=== PATIENT | male | born 1980 | race Caucasian/White ===

== ENCOUNTER 2017-05-14 09:35 | Emergency (ER) | payer OTHER ==
[2017-05-14 09:51] VITALS: BP 146/89
--- NOTE | 2017-05-14 10:06 | EDM.PDOC ---
ED HPI GENERAL MEDICAL PROBLEM - General Chief Complaint: Respiratory Problem Stated Complaint: SOB/VA SENT OVER Time Seen by Provider: 05/14/17 10:06 - History of Present Illness INITIAL COMMENTS - FREE TEXT/NARRATIVE: 37-year-old male presents emergency room with worsening cough and chest tightness. Patient was seen [facility] and referred over here the patient has MS with chronic right-sided weakness and he's had increased shakiness in his hands often he gets this way when he is on the verge of having a EMS for he has vision changes with this as well.. The patient has developed cough with significant chills. This started now 4 days ago. The patient understands that he is breathing okay but it feels more labored than normal. He has a frequent cough that is dry nonproductive. He was achy the day before yesterday significantly so but this seems to have resolved. He has had no gastrointestinal symptoms no other symptoms at this time the patient is mildly neutropenic because of his treatment for his MS. Patient currently is not on steroids but has a stock of this at home in case he has an acute flare. Headache Pain Score (Numeric/FACES): 5 - Related Data Allergies Allergy/AdvReac Type Severity Reaction Status Date / Time interferon beta-1a Allergy Other Verified 05/14/17 09:46 [From Avonex] Home Meds: Home Meds Albuterol [IMW: Ventolin HFA] 2 puff INH Q4H #18 gm 05/14/17 [Rx] Fingolimod [Gilenya] 0.5 mg PO DAILY 05/14/17 [History] Fluticasone Propionate [Children's Flonase Allergy Rlf] 9.9 ml NS BID 05/14/17 [ History] Methylprednisolone [IJD: Methylprednisolone] 4 mg PO Q6H 05/14/17 [History] Zolpidem Tartrate 10 mg PO BEDTIME 05/14/17 [History] Past Medical History Neurological History: Reports: Other (See Below) Other Neuro History: MS Psychiatric History: Reports: Other (See Below) Other Psychiatric History: Insomnia Hematologic History: Reports: Other (See Below) Other Hematologic History: Leukopenia Immunologic History: Reports: Immunosuppression - Past Surgical History GI Surgical History: Reports: Other (See Below) Other GI Surgeries/Procedures: hernia repair x 3 Musculoskeletal Surgical History: Reports: Other (See Below) Other Musculoskeletal Surgeries/Procedures:: knee and elbow surgery Social & Family History - Tobacco Use Smoking Status *Q: Never Smoker - Caffeine Use Caffeine Use: Reports: Tea - Alcohol Use Days Per Week of Alcohol Use: 2 Number of Drinks Per Day: 2 Total Drinks Per Week: 4 - Recreational Drug Use Recreational Drug Use: No ED ROS GENERAL - Review of Systems Review Of Systems: See Below Constitutional: Reports: Chills, Other (His chills have seemed to improve). Denies: No Symptoms HEENT: Reports: No Symptoms Respiratory: Reports: Shortness of Breath, Cough. Denies: Sputum Cardiovascular: Reports: No Symptoms GI/Abdominal: Reports: No Symptoms : Reports: No Symptoms Musculoskeletal: Reports: Muscle Pain (This has improved), Muscle Stiffness Skin: Reports: No Symptoms Neurological: Reports: Other (Intermittent visual changes consistent with his MS his right-sided symptoms have not been worsening.) Psychiatric: Reports: No Symptoms ED EXAM, GENERAL - Physical Exam Exam: See Below Exam Limited By: No Limitations General Appearance: Alert, No Apparent Distress Eye Exam: Bilateral Eye: Normal Inspection Ears: Normal External Exam, Normal Canal, Other (Cerumen up against the tympanic membranes the patient is been using Q-tips on exertion) Nose: Normal Inspection, Normal Mucosa, No Blood Throat/Mouth: Normal Inspection, Normal Lips, Normal Teeth, Normal Gums, Normal Oropharynx, Normal Voice, No Airway Compromise Head: Atraumatic, Normocephalic Neck: Normal Inspection, Supple, Non-Tender, Full Range of Motion Respiratory/Chest: No Respiratory Distress, Lungs Clear, Normal Breath Sounds Cardiovascular: Regular Rate, Rhythm, No Edema, No Murmur GI/Abdominal: Normal Bowel Sounds, Soft, Non-Tender Back Exam: Normal Inspection. No: CVA Tenderness (L), CVA Tenderness (R) Extremities: Normal Inspection, No Pedal Edema Neurological: Alert, Normal Cognition Course - Vital Signs Last Recorded V/S: Last Vital Signs Temp 36.7 C 05/14/17 09:48 Pulse 71 05/14/17 09:48 Resp 18 05/14/17 09:48 BP 146/89 H 05/14/17 09:48 Pulse Ox 98 05/14/17 10:47 - Orders/Labs/Meds Orders: Active Orders 24 hr Category Date Time Status RT Aerosol Therapy [RC] ASDIRECTED Care 05/14/17 10:28 Active Labs: Laboratory Tests 05/14/17 05/14/17 Range/Units 10:40 10:40 WBC 2.81 L (4.23-9.07) K/mm3 RBC 4.66 (4.63-6.08) M/mm3 Hgb 14.5 (13.7-17.5) gm/L Hct 40.9 (40.1-51.0) % MCV 87.8 (79.0-92.2) fl MCH 31.1 (25.7-32.2) pg MCHC 35.5 (32.2-35.5) g/dl RDW Std Deviation 41.0 (35.1-43.9) fL Plt Count 205 (163-337) K/mm3 MPV 10.2 (9.4-12.3) fl Neutrophils % (Manual) 66 H (40-60) % Band Neutrophils % 1 (0-10) % Lymphocytes % (Manual) 13 L (20-40) % Atypical Lymphs % 0 % Monocytes % (Manual) 15 H (2-10) % Eosinophils % (Manual) 3 (0.8-7.0) % Basophils % (Manual) 2 H (0.2-1.2) Platelet Estimate Adequate Macrocytosis 1+ slight RBC Morph Comment Not Reportable Sodium 144 (136-145) mEq/L Potassium 4.2 (3.5-5.1) mEq/L Chloride 107 (98-107) mEq/L Carbon Dioxide 27 (21-32) mEq/L Anion Gap 14.2 (5-15) BUN 15 (7-18) mg/dL Creatinine 1.1 (0.7-1.3) mg/dL Est Cr Clr Drug Dosing 111.79 mL/min Estimated GFR (MDRD) > 60 (>60) mL/min BUN/Creatinine Ratio 13.6 L (14-18) Glucose 88 (74-106) mg/dL Calcium 8.8 (8.5-10.1) mg/dL Total Bilirubin 0.7 (0.2-1.0) mg/dL AST 30 (15-37) U/L ALT 77 H (16-63) U/L Alkaline Phosphatase 87 (46-116) U/L Total Protein 7.0 (6.4-8.2) g/dl Albumin 4.2 (3.4-5.0) g/dl Globulin 2.8 gm/dL Albumin/Globulin Ratio 1.5 (1-2) Meds: Medications Discontinued Medications Generic Name Dose Route Start Last Admin Trade Name Kendal PRN Reason Stop Dose Admin Albuterol/Ipratropium 3 ml 05/14/17 10:27 05/14/17 10:47 Duoneb 3.0-0.5 Mg/3 Ml NEB 05/14/17 10:28 3 ml ONETIME ONE Administration - Re-Assessments/Exams Free Text/Narrative Re-Assessment/Exam: 05/14/17 12:07 Chest x-ray is nondiagnostic no infiltrate seen. The patient had a DuoNeb treatment feels much better at this point. The patient has a bronchitis favorable responses to bronchodilator. He has an underlying viral illness could be influenza. Influenza testing not done as his nocturia change our course of management at this point however the patient understands he needs close follow-up and agrees to follow-up in the clinic as directed and will return to the emergency room with any worsening symptoms or problems. Departure - Departure Time of Disposition: 12:09 Disposition: Home, Self-Care 01 Clinical Impression: Bronchitis, Viral respiratory illness - Discharge Information Prescriptions: Albuterol [IMW: Ventolin HFA] 2 puff INH Q4H #18 gm Referrals: Magdalena Bunch DO [Primary Care Provider] - Forms: ED Department Discharge Additional Instructions: Return to the emergency room with any questions problems worsening symptoms. Follow-up in the [facility] on or Saturday. Evaluation emergency room suggestive of bronchitis most likely viral etiology could be influenza. However because of the timing testing for this would not change our treatment. You had a favorable response to the nebulizer. Chest x- ray does not show any evidence of pneumonia. Be started on albuterol inhaler 2 puffs every 4 hours while awake to help with her coughing or breathing. Continue to use this for one week after you're feeling better. - My Orders Last 24 Hours: My Active Orders 05/14/17 10:28 RT Aerosol Therapy [RC] ASDIRECTED - Assessment/Plan Last 24 Hours: My Active Orders 05/14/17 10:28 RT Aerosol Therapy [RC] ASDIRECTED
[2017-05-14] MEDS ORDERED: Albuterol/Ipratropium 3.0-0.5 MG/3 ML Neb Soln NEB ONE (10:27)
--- NOTE | 2017-05-14 11:16 | CR ---
Chest: Two views of the chest were obtained. Comparison: No prior chest x-ray. Heart size and mediastinum are normal. Lungs are clear. Bony structures are unremarkable for the patient's age. Impression: 1. Nothing acute is seen on two-view chest x-ray. Diagnostic code #1
== END 2017-05-14 12:30 | disposition home or self-care (01) ==
LOC: JD.ED 09:35
DX: J40 Bronchitis, not specified as acute or chronic (principal); B34.9 Viral infection, unspecified; G35 Multiple sclerosis; Z79.899 Other long term (current) drug therapy; Z88.8 Allergy status to other drugs, medicaments and biological substances
CPT/HCPCS: 36415; 71046; 71046-26; 80053; 85025; 94640; 99283; 99285-25

== ENCOUNTER 2020-02-11 15:24 | Emergency (ER) | payer OTHER ==
[2020-02-11] MEDS ORDERED: Sodium Chloride 0.9% 10 ML Syringe FLUSH PRN (15:51)
[2020-02-11] MEDS ORDERED: Codeine/Promethazine 10-6.25 MG/5 ML Syrup 5 ML UD Cup PO ONE (15:52)
[2020-02-11] MEDS ORDERED: Albuterol 6.7 GM Inhaler INH ONE (15:52)
[2020-02-11] MEDS ORDERED: Sodium Chloride 0.9% 1,000 ML IV SCH (16:00)
--- NOTE | 2020-02-11 16:53 | CR ---
PROCEDURE INFORMATION: Exam: XR Chest, 1 View Exam date and time: 02/11/2020 3:59 PM Age: 39 years old Clinical indication: Chest pain TECHNIQUE: Imaging protocol: XR of the chest Views: 1 view. COMPARISON: DX Chest 2V 11/18/2017 8:32 AM FINDINGS: Lungs: No suspicious pulmonary nodules or areas of lung consolidation. Pleural space: Costophrenic angles are sharp. No pneumothorax. Heart/Mediastinum: Unremarkable. No cardiomegaly. Bones/joints: Age appropriate. IMPRESSION: 1. No active disease of the chest. 2. No significant interval change when compared to the DX Chest 2V 11/18/2017 8:32 AM. Thank you for allowing us to participate in the care of your patient. Dictated and Authenticated by: Israel Nguyen MD 02/11/2020 5:51 PM Central Time ([place] & [place]) [facility]ENTER[facility]qu[facility]
--- NOTE | 2020-02-11 18:14 | EDM.PDOC ---
ED HPI GENERAL MEDICAL PROBLEM - General Chief Complaint: Respiratory Problem Stated Complaint: COVID + /COUGHING/HEADACHES/SOB Time Seen by Provider: 02/11/20 15:37 Source of Information: Reports: Patient History Limitations: Reports: No Limitations - History of Present Illness INITIAL COMMENTS - FREE TEXT/NARRATIVE: The patient presents with COVID and a cough. He has had this for 2 weeks. He has MS and is on an immunologic. He says he still has fever, chills, cough, and headaches. He also has body aches. He has no lung problems such as asthma or COPD. He does not cough. He has no heart problems. Onset: Gradual Duration: Day(s): Location: Reports: Head, Generalized Quality: Reports: Ache Severity: Moderate Improves with: Reports: None Worsens with: Reports: None Associated Symptoms: Reports: Cough, Fever/Chills, Headaches, Shortness of Breath. Denies: Confusion, Chest Pain, Nausea/Vomiting Head Pain Score (Numeric/FACES): 8 - Related Data Allergies Allergy/AdvReac Type Severity Reaction Status Date / Time interferon beta-1a Allergy Severe Other Verified 02/11/20 15:38 [From Avonex] Home Meds: Home Meds Fingolimod [Gilenya] 0.5 mg PO DAILY 05/14/17 [History] Cholecalciferol (Vitamin D3) [Vitamin D] 5,000 unit PO DAILY 02/11/20 [History] Codeine/Promethazine [Phenergan with Codeine] 5 - 10 ml PO Q6HR PRN #300 ml 02/11/20 [Rx] Dextromethorphan/guaiFENesin [Robitussin DM] 0 ml PO TID 02/11/20 [History] Pseudoephedrine HCl [Sudafed] 30 mg PO BID 02/11/20 [History] Past Medical History HEENT History: Reports: Impaired Vision Neurological History: Reports: Other (See Below) Other Neuro History: MS Psychiatric History: Reports: Other (See Below) Other Psychiatric History: Insomnia Endocrine/Metabolic History: Reports: Obesity/BMI 30+ Hematologic History: Reports: Other (See Below) Other Hematologic History: Leukopenia Immunologic History: Reports: Immunosuppression - Infectious Disease History Infectious Disease History: Reports: Novel Coronavirus - Past Surgical History HEENT Surgical History: Reports: Adenoidectomy, Oral Surgery, Tonsillectomy GI Surgical History: Reports: Other (See Below) Other GI Surgeries/Procedures: hernia repair x 3 Male Surgical History: Reports: Other (See Below) Other Male Surgeries/Procedures: Right testicle removed. Musculoskeletal Surgical History: Reports: Arthroscopic Knee, Other (See Below) Other Musculoskeletal Surgeries/Procedures:: knee and elbow surgery Social & Family History - Tobacco Use Tobacco Use Status *Q: Never Tobacco User - Caffeine Use Caffeine Use: Reports: Tea - Recreational Drug Use Recreational Drug Use: No ED ROS GENERAL - Review of Systems Review Of Systems: See Below Constitutional: Reports: Fever, Chills, Malaise, Weakness, Fatigue HEENT: Reports: No Symptoms Respiratory: Reports: Shortness of Breath, Cough Cardiovascular: Reports: No Symptoms Endocrine: Reports: No Symptoms GI/Abdominal: Reports: No Symptoms : Reports: No Symptoms Musculoskeletal: Reports: No Symptoms ED EXAM, GENERAL - Physical Exam Exam: See Below Exam Limited By: No Limitations General Appearance: Alert, No Apparent Distress Ears: Normal External Exam Nose: Normal Inspection Head: Atraumatic, Normocephalic Neck: Normal Inspection Respiratory/Chest: No Respiratory Distress, Lungs Clear, Normal Breath Sounds Cardiovascular: Regular Rate, Rhythm, No Edema, No Murmur GI/Abdominal: Soft, Non-Tender, No Organomegaly, No Mass Back Exam: Normal Inspection Extremities: Normal Inspection #1 Interpretation EKG Date: 02/11/20 Time: 15:44 Rhythm: NSR Rate (Beats/Min): [address] [place]: Normal P-Wave: Present QRS: Normal ST-T: Normal QT: Normal EKG Interpretation Comments: Q waves in the anterior leads Course - Vital Signs Last Recorded V/S: Last Vital Signs Temp 98.7 F 02/11/20 15:34 Pulse 69 02/11/20 17:20 Resp 20 02/11/20 17:20 BP 131/67 02/11/20 17:20 Pulse Ox 97 02/11/20 17:20 - Orders/Labs/Meds Orders: Active Orders 24 hr Category Date Time Status Cardiac Monitoring [RC] . DIRECTED Care 02/11/20 15:51 Active EKG 12 Lead [EKG Documentation Completion] [RC] ROUTINE Care 02/11/20 15:43 Active Oxygen Therapy [RC] PRN Care 02/11/20 15:51 Active Peripheral IV Care [RC] . DIRECTED Care 02/11/20 15:52 Active RT Post Treatment Assessment [RC] Click to Edit Care 02/11/20 15:52 Active RT Pre-Treatment Assessment [RC] Click to Edit Care 02/11/20 15:52 Active Sodium Chloride 0.9% [Normal Saline] 1,000 ml Med 02/11/20 16:00 Active IV .BOLUS Sodium Chloride 0.9% [Saline Flush] Med 02/11/20 15:51 Active 10 ml FLUSH ASDIRECTED PRN Peripheral IV Insertion Adult [OM.PC] Stat Oth 02/11/20 15:51 Ordered Medication Orders Sodium Chloride (Normal Saline) 1,000 mls @ 1,000 mls/hr IV .BOLUS CLIFFORD Last Admin: 02/11/20 16:22 Dose: 1,000 mls/hr Documented by: SIA Sodium Chloride (Saline Flush) 10 ml FLUSH ASDIRECTED PRN PRN Reason: Keep Vein Open Last Admin: 02/11/20 15:59 Dose: 10 ml Documented by: SIA Labs: Laboratory Tests 02/11/20 02/11/20 02/11/20 Range/Units 15:35 15:35 15:35 WBC 2.88 L (4.23-9.07) K/mm3 RBC 4.78 (4.63-6.08) M/mm3 Hgb 14.5 (13.7-17.5) gm/dl Hct 41.9 (40.1-51.0) % MCV 87.7 (79.0-92.2) fl MCH 30.3 (25.7-32.2) pg MCHC 34.6 (32.2-35.5) g/dl RDW Std Deviation 42.1 (35.1-43.9) fL Plt Count 223 (163-337) K/mm3 MPV 10.1 (9.4-12.3) fl Neut % (Auto) 68.5 H (34.0-67.9) % Lymph % (Auto) 12.5 L (21.8-53.1) % [place] % (Auto) 17.4 H (5.3-12.2) % Eos % (Auto) 0.3 L (0.8-7.0) Baso % (Auto) 0.3 (0.1-1.2) % Neut # (Auto) 1.97 (1.78-5.38) K/mm3 Lymph # (Auto) 0.36 L (1.32-3.57) K/mm3 [place] # (Auto) 0.50 (0.30-0.82) K/mm3 Eos # (Auto) 0.01 L (0.04-0.54) K/mm3 Baso # (Auto) 0.01 (0.01-0.08) K/mm3 Manual Slide Review Abnormal smear D-Dimer, Quantitative 0.28 (0.19-0.50) mg/L Sodium 137 (136-145) mEq/L Potassium 4.2 (3.5-5.1) mEq/L Chloride 101 (98-107) mEq/L Carbon Dioxide 29 (21-32) mEq/L Anion Gap 11.2 (5-15) BUN 11 (7-18) mg/dL Creatinine 1.1 (0.7-1.3) mg/dL Est Cr Clr Drug Dosing 109.60 mL/min Estimated GFR (MDRD) > 60 (>60) mL/min BUN/Creatinine Ratio 10.0 L (14-18) Glucose 89 (74-106) mg/dL Lactic Acid (0.4-2.0) mmol/L Calcium 8.8 (8.5-10.1) mg/dL Ferritin (26-388) ng/ml Total Bilirubin 0.7 (0.2-1.0) mg/dL AST 28 (15-37) U/L ALT 56 (16-63) U/L Alkaline Phosphatase 126 H (46-116) U/L Lactate Dehydrogenase 223 (85-227) U/L Troponin I < 0.017 (0.00-0.056) ng/mL C-Reactive Protein 1.2 H* (<1.0) mg/dL Total Protein 7.1 (6.4-8.2) g/dl Albumin 4.0 (3.4-5.0) g/dl Globulin 3.1 gm/dL Albumin/Globulin Ratio 1.3 (1-2) 02/11/20 02/11/20 Range/Units 15:35 15:35 WBC (4.23-9.07) K/mm3 RBC (4.63-6.08) M/mm3 Hgb (13.7-17.5) gm/dl Hct (40.1-51.0) % MCV (79.0-92.2) fl MCH (25.7-32.2) pg MCHC (32.2-35.5) g/dl RDW Std Deviation (35.1-43.9) fL Plt Count (163-337) K/mm3 MPV (9.4-12.3) fl Neut % (Auto) (34.0-67.9) % Lymph % (Auto) (21.8-53.1) % [place]ucks % (Auto) (5.3-12.2) % Eos % (Auto) (0.8-7.0) Baso % (Auto) (0.1-1.2) % Neut # (Auto) (1.78-5.38) K/mm3 Lymph # (Auto) (1.32-3.57) K/mm3 Bucks # (Auto) (0.30-0.82) K/mm3 Eos # (Auto) (0.04-0.54) K/mm3 Baso # (Auto) (0.01-0.08) K/mm3 Manual Slide Review D-Dimer, Quantitative (0.19-0.50) mg/L Sodium (136-145) mEq/L Potassium (3.5-5.1) mEq/L Chloride (98-107) mEq/L Carbon Dioxide (21-32) mEq/L Anion Gap (5-15) BUN (7-18) mg/dL Creatinine (0.7-1.3) mg/dL Est Cr Clr Drug Dosing mL/min Estimated GFR (MDRD) (>60) mL/min BUN/Creatinine Ratio (14-18) Glucose (74-106) mg/dL Lactic Acid 0.8 (0.4-2.0) mmol/L Calcium (8.5-10.1) mg/dL Ferritin 1322 H (26-388) ng/ml Total Bilirubin (0.2-1.0) mg/dL AST (15-37) U/L ALT (16-63) U/L Alkaline Phosphatase (46-116) U/L Lactate Dehydrogenase (85-227) U/L Troponin I (0.00-0.056) ng/mL C-Reactive Protein (<1.0) mg/dL Total Protein (6.4-8.2) g/dl Albumin (3.4-5.0) g/dl Globulin gm/dL Albumin/Globulin Ratio (1-2) Meds: Medications Generic Name Dose Route Start Last Admin Trade Name Freq PRN Reason Stop Dose Admin Sodium Chloride 1,000 mls @ 1,000 mls/hr 02/11/20 16:00 02/11/20 16:22 Normal Saline IV 1,000 mls/hr .BOLUS CLIFFORD Administration Sodium Chloride 10 ml 02/11/20 15:51 02/11/20 15:59 Saline Flush FLUSH 10 ml ASDIRECTED PRN Administration Keep Vein Open Discontinued Medications Generic Name Dose Route Start Last Admin Trade Name Freq PRN Reason Stop Dose Admin Albuterol 0 gm 02/11/20 15:52 02/11/20 16:22 Proventil Hfa INH 02/11/20 15:53 2 puff ONETIME ONE Administration Promethazine HCl/Codeine 10 ml 02/11/20 15:52 02/11/20 16:22 Phenergan With Codeine PO 02/11/20 15:53 10 ml ONETIME ONE Administration - Re-Assessments/Exams Free Text/Narrative Re-Assessment/Exam: 02/11/20 18:11 I ordered an IV NS 1L bolus, phenergan with codeine, albuterol 2 puffs, EKG, CXR and labs. His EKG shows a NSR with no acute changes. His CXR shows nothing acute. His WBC is low at 2.88 but that is normal for him on his immunologic. His D-dimer was negative along with his troponin. His ferritin is elevated at 1322. His CRP is elevated at 1.2. He feels better after the treatment. I will have him keep taking the albuterol and give him phenergan with codeine. Departure - Departure Time of Disposition: 18:15 Disposition: Home, Self-Care 01 Condition: Good Clinical Impression: COVID-19 - Discharge Information *PRESCRIPTION DRUG MONITORING PROGRAM REVIEWED*: No *COPY OF PRESCRIPTION DRUG MONITORING REPORT IN PATIENT JOSUÉ: No Prescriptions: Codeine/Promethazine [Phenergan with Codeine] 5 - 10 ml PO Q6HR PRN #300 ml PRN Reason: Cough Referrals: Rosalia Rachel MD [Primary Care Provider] - 1 Week Additional Instructions: Take 2 puffs of the albuterol every 6 hours as needed for shortness of breath. Take the phenergan with codeine 10mls every 6 hours as needed for cough. Please return if you are worse. Sepsis Event Note (ED) - Evaluation Sepsis Screening Result: No Definite Risk - Focused Exam Vital Signs: Vital Signs Temp Pulse Resp BP Pulse Ox Pulse Ox 02/11/20 17:20 69 20 131/67 97 02/11/20 15:58 96 02/11/20 15:34 98.7 F 70 20 138/88 96 - My Orders Last 24 Hours: My Active Orders 02/11/20 15:43 EKG 12 Lead [EKG Documentation Completion] [RC] ROUTINE 02/11/20 15:51 Cardiac Monitoring [RC] . DIRECTED Oxygen Therapy [RC] PRN Sodium Chloride 0.9% [Saline Flush] 10 ml FLUSH ASDIRECTED PRN Peripheral IV Insertion Adult [OM.PC] Stat 02/11/20 15:52 Peripheral IV Care [RC] . DIRECTED RT Post Treatment Assessment [RC] Click to Edit RT Pre-Treatment Assessment [RC] Click to Edit 02/11/20 16:00 Sodium Chloride 0.9% [Normal Saline] 1,000 ml IV .BOLUS - Assessment/Plan Last 24 Hours: My Active Orders 02/11/20 15:43 EKG 12 Lead [EKG Documentation Completion] [RC] ROUTINE 02/11/20 15:51 Cardiac Monitoring [RC] . DIRECTED Oxygen Therapy [RC] PRN Sodium Chloride 0.9% [Saline Flush] 10 ml FLUSH ASDIRECTED PRN Peripheral IV Insertion Adult [OM.PC] Stat 02/11/20 15:52 Peripheral IV Care [RC] . DIRECTED RT Post Treatment Assessment [RC] Click to Edit RT Pre-Treatment Assessment [RC] Click to Edit 02/11/20 16:00 Sodium Chloride 0.9% [Normal Saline] 1,000 ml IV .BOLUS
[2020-02-11 18:38] VITALS: BP 118/66; PULSE 70
== END 2020-02-11 18:40 | disposition home or self-care (01) ==
LOC: JD.ED 15:24
DX: U07.1 COVID-19 (principal); E66.9 Obesity, unspecified; Z68.34 Body mass index [BMI] 34.0-34.9, adult; Z88.8 Allergy status to other drugs, medicaments and biological substances
CPT/HCPCS: 36415; 71045; 80053; 82728; 83605; 83615; 84484; 85025; 85379; 86140; 93005; 99284; A9270; J7030; 93010

== ENCOUNTER 2021-08-09 18:28 | Emergency (ER) | payer OTHER ==
[2021-08-09 18:44] VITALS: BP 134/97; PULSE 85
[2021-08-09] MEDS ORDERED: Diphtheria,Pertussis(Acell),Tetanus Vaccine 0.5 ML Syringe IM ONE (19:15)
[2021-08-09] MEDS ORDERED: Morphine 4 MG/ML Syringe IM ONE (19:30)
== END 2021-08-09 20:07 | disposition home or self-care (01) ==
LOC: JD.ED 18:28
DX: T23.202A Burn of second degree of left hand, unspecified site, initial encounter (principal); T23.222A Burn of second degree of single left finger (nail) except thumb, initial encounter; E66.9 Obesity, unspecified; Z68.30 Body mass index [BMI] 30.0-30.9, adult; Z88.8 Allergy status to other drugs, medicaments and biological substances; Z86.16 Personal history of COVID-19; Z23 Encounter for immunization; W18.39XA Other fall on same level, initial encounter; Y93.02 Activity, running
CPT/HCPCS: 90471; 90715; 96372; 99283; J2270

== ENCOUNTER 2021-12-19 13:42 | Emergency (ER) | payer OTHER ==
[2021-12-19 14:03] VITALS: BP 131/96; PULSE 65
== END 2021-12-19 17:13 | disposition home or self-care (01) ==
LOC: JD.ED 13:42
DX: H65.91 Unspecified nonsuppurative otitis media, right ear (principal); E66.9 Obesity, unspecified; Z88.8 Allergy status to other drugs, medicaments and biological substances; Z68.34 Body mass index [BMI] 34.0-34.9, adult
CPT/HCPCS: 70480; 70482-26; 99282; 99283

== ENCOUNTER 2024-11-19 09:01 | Emergency (ER) | payer OTHER ==
[2024-11-19 09:25] VITALS: BP 147/102; PULSE 78
[2024-11-19] MEDS: Lidocaine/Epineph/Tetracaine 3 ML Syringe TOP ONE (09:37)
== END 2024-11-19 10:45 | disposition home or self-care (01) ==
LOC: JD.ED 09:01
DX: S01.511A Laceration without foreign body of lip, initial encounter (principal); Z86.16 Personal history of COVID-19; Z88.8 Allergy status to other drugs, medicaments and biological substances; W22.8XXA Striking against or struck by other objects, initial encounter
CPT/HCPCS: 12011; 99282; A9270; J2003